=== PATIENT | male | born 1995 | race Caucasian/White ===

== ENCOUNTER → 2018-08-06 | Day surgery (SDC) | payer BC ==
[~2018-08-06] MED LIST: BUPIVACAINE 0.25% 30ML SDV INJ ONE; CEFAZOLIN SOD 1 GM/NS 50ML 50 ML IV ONE; DEXAMETHASONE SOD PHOS INJ 4 MG/ML VIAL ONE; FENTANYL CITRATE/PF 100MCG/2 ML INJ ONE; FINASTERIDE5 MG PO; KETAMINE HCL INJ 50 MG/ML 10 ML VIAL ONE; KETOROLAC TROMETHAMINE 30 MG/ML VIAL ONE; LIDOCAINE HCL 2% LOCAL INJ 5 ML SDV VIAL INJ ONE; MIDAZOLAM HCL 2 MG/2 ML VIAL ONE; ONDANSETRON HCL INJ 2MG/ML 2ML 2 MG/ML VIAL ONE; PROPOFOL IV EMULSION 10 MG/ML 20 ML VIAL ONE; SEVOFLURANE INHAL SOLN 250 ML PEN BTL ONE
[2018-08-06 08:45] VITALS: BP 123/82
--- NOTE | 2018-08-06 15:26 | Operative Report ---
DATE OF PROCEDURE: 08/06/2018 PREOPERATIVE DIAGNOSES: 1. Right hallux valgus. 2. Right hallux interphalangeus. POSTOPERATIVE DIAGNOSES: 1. Right hallux valgus. 2. Right hallux interphalangeus. PLANNED PROCEDURE: 1. Right Dominik bunionectomy with first metatarsal osteotomy and internal fixation. 2. Flaquito osteotomy with internal fixation. [employer]PER[employer]IVITIES: Collin Lock DPM. ANESTHESIA: General with a postoperative block consisting of 15 mL of 0.25% Marcaine plain mixed with 1 mL of dexamethasone phosphate. HEMOSTASIS: Pneumatic thigh tourniquet inflated to 350 mmHg for a total time of approximately 40 minutes. MATERIALS: Two 2.0 mm x 16 mm cortical bone screws, 1 size 10 [facility] Nitinol staple, 2-0 Vicryl, 3-0 Vicryl, 4-0 Prolene. ESTIMATED BLOOD LOSS: Less than 10 mL. PATHOLOGY: None. PROCEDURE NOTE: The patient was seen in the preoperative waiting room, where the correct procedure and side was identified. The patient was brought to the operating room and placed on the operating room table in supine. General anesthesia was initiated. At this time, a well-padded pneumatic tourniquet was placed about the patient's right thigh. The right foot, ankle and leg were then scrubbed, prepped and draped in the usual aseptic manner. The right foot, ankle, and leg were exsanguinated with an Esmarch bandage and the pneumatic thigh tourniquet was inflated to 350 mmHg for a total time of approximately 40 minutes. Attention was directed to the dorsal medial aspect of the patient's right foot, where a large dorsal medial prominence was noted to the first metatarsophalangeal joint with hallux deviated laterally. A 6 cm curvilinear incision was made directly over the first metatarsophalangeal joint medial to the extensor hallucis longus tendon. The incision was carried through the subcutaneous tissue it from deep or underlying structures and all vital and neurovascular structures were identified and retracted medially and laterally and all bleeders were cauterized or ligated as deemed necessary. At this time, through the same incision, a full lateral release was performed consisting of a deep transverse metatarsal ligament, lateral collateral ligament, and fibular sesamoid ligament. The hallux was then put through a range of motion and found to be functioning in a more proper anatomic alignment. Next, an inverted-L capsulotomy was performed at the level of the metatarsophalangeal joint to allow for good visualization of the first metatarsal head. Utilizing a sagittal saw, the medial eminence was resected and passed off to the back table. At this point, a medial to lateral Chevron osteotomy was performed with a dorsal wing longer to allow for proper fixation and the capital fragment was transposed laterally to proximally 3 to 5 mm and impacted on to the shaft of the first metatarsal. Two 2.0 mm x 16 mm cortical bone screws were placed per AO fixation. Fixation site was stable, this was confirmed via intraoperative fluoroscopy. Next, attention was directed to the proximal phalanx, where a linear incision was made to allow for good visualization of the shaft of the proximal phalanx. Utilizing a sagittal saw, a wedge osteotomy was performed medial to lateral with the apex lateral and the wedge medial leaving the cortical hinge intact on the lateral aspect. The phalanx was then reduced and fixated utilizing one 10 mm [facility] Nitinol staple per manufacture protocol. Fixation site was intact and confirmed via intraoperative fluoroscopy. The wound was again flushed with copious amounts of sterile saline. All capsule and deep tissue were reapproximated with 2-0 Vicryl, subcutaneous tissue with 3-0 Vicryl, and the skin was closed using a running interlocking stitch of 4-0 nylon. All incision sites were dressed with adaptic, 4x4's, Kerlix, Chad wrap, and a postoperative shoe. The patient tolerated the procedure and anesthesia well. The patient was transferred to the postoperative recovery room with vital signs stable and vascular status intact. The patient was monitored there for a short period of time before being sent home with the final written and oral instructions: 1. Keep the dressing clean, dry and intact. 2. The patient is to remain partial weightbearing in a postop shoe and to avoid excessive ambulation until being seen in the office. 3. The patient was given the office number to try to contact us if any problems should arise. TAD Stephen/MODL /[id number]
== END | disposition home or self-care (01) ==
LOC: OR 05:00
PROVIDERS: ATTEND Podiatrist Foot & Ankle Surgery
DX: M20.11 Hallux valgus (acquired), right foot (principal); M20.5X1 Other deformities of toe(s) (acquired), right foot; Z87.891 Personal history of nicotine dependence
CPT/HCPCS: 28299; C1713; J0690; J1100; J1885; J2001; J2250; J2405; J2704